=== PATIENT | male | born 1950 | race Caucasian/White ===

== ENCOUNTER 2022-06-24 09:11 | Emergency (ER) | payer BC, OTHER ==
[~2022-06-24] VITALS: Ht 177.8 cm; Wt 113.4 kg
[2022-06-24 09:24] VITALS: BP_SYST 124
[2022-06-24 10:58] LABS: BASOPHILS # (AUTO) 0.1 K/uL (0.0-0.2); BASOPHILS % (AUTO) 0.5 % (0.0-2.0); EOSINOPHILS # (AUTO) 0.1 K/uL (0.0-0.4); EOSINOPHILS % (AUTO) 0.9 % (0.0-4.0); HEMATOCRIT 45.2 % (36-54); HEMOGLOBIN 15.4 g/dL (14.0-18.0); LYMPHOCYTES # (AUTO) 0.4 K/uL (1.0-5.5); MEAN CORPUSCULAR HEMOGLOBIN 28 pg (27-31); MEAN CORPUSCULAR HGB CONC 34 % (32-36); MEAN CORPUSCULAR VOLUME 83 fL (79.0-98.0); MONOCYTES # (AUTO) 0.9 K/uL (0.0-1.0); MONOCYTES % (AUTO) 9.5 % (1.7-9.3); NEUTROPHILS # (AUTO) 8.1 K/uL (1.8-7.7); NEUTROPHILS % (AUTO) 85.1 % (40.0-70.0); PLATELET COUNT (AUTO) 206 K/uL (130-430); RED BLOOD CELL COUNT(AUTO) 5.47 MIL/uL (4.2-6.2); RED CELL DISTRIBUTION WIDTH 14.3 % (9.0-15.0); WHITE BLOOD COUNT (AUTO) 9.6 K/uL (4.8-10.8)
--- NOTE | 2022-06-24 11:03 | NUR ---
Placed in room 03 . Placed on cafeteria monitor, blood pressure machine and pulse oximeter. To gown for exam. Side rails up. Report given to CHRISSIE CASTANEDA.
--- NOTE | 2022-06-24 11:05 | NUR ---
DR. LEVI AT BEDSIDE TO ASSESS PT.
[2022-06-24 11:13] LABS: ANION GAP 4 (5-15); CALCIUM 8.9 mg/dL (8.4-11.0); CHLORIDE 97 mmol/L (98-107); CREATININE 1.51 mg/dL (0.55-1.30); GLUCOSE 262 mg/dL (70-99); UREA NITROGEN, BLOOD 25 mg/dL (8-21)
--- NOTE | 2022-06-24 11:15 | NUR ---
RECEIVED PT FROM CHRISSIE GORE. PT FELL FORWARD WHILE TAKING MORNING WALK, NO K/O. NO INJURY NOTED. PT IS AAOX4. RESP E/U. DENIES N/V. SKIN INTACT. DENIES PAIN.
[2022-06-24 11:23] LABS: ALANINE AMINOTRANSFERASE 43 U/L (12-78); ALBUMIN 3.5 g/dL (3.4-4.8); ASPARTATE AMINOTRANSFERASE 36 U/L (10-37); TOTAL BILIRUBIN 0.4 mg/dL (0.0-1.0)
[2022-06-24 13:18] VITALS: BP_SYST 152
== END 2022-06-24 13:21 | disposition home or self-care (01) ==
LOC: SED 09:11
DX: Z04.2 Encounter for examination and observation following work accident (principal); E11.9 Type 2 diabetes mellitus without complications; R51.9 Headache, unspecified; Z79.899 Other long term (current) drug therapy
CPT/HCPCS: 36415; 70450-TC; 76376; 80053; 84484; 85025; 99284

== ENCOUNTER 2022-09-11 04:50 | Inpatient (IN) | payer OTHER ==
[2022-09-08 12:24] LABS: BASOPHILS % (AUTO) 0.4 % (0.0-2.0); EOSINOPHILS # (AUTO) 0.1 K/uL (0.0-0.4); EOSINOPHILS % (AUTO) 1.1 % (0.0-4.0); HEMATOCRIT 36.6 % (36-54); HEMOGLOBIN 12.2 g/dL (14.0-18.0); LYMPHOCYTES # (AUTO) 1.8 K/uL (1.0-5.5); LYMPHOCYTES % (AUTO) 15.9 % (20.5-51.5); MEAN CORPUSCULAR HEMOGLOBIN 28 pg (27-31); MEAN CORPUSCULAR HGB CONC 33 % (32-36); MEAN CORPUSCULAR VOLUME 84 fL (79.0-98.0); MONOCYTES # (AUTO) 0.7 K/uL (0.0-1.0); MONOCYTES % (AUTO) 6.6 % (1.7-9.3); NEUTROPHILS # (AUTO) 8.4 K/uL (1.8-7.7); PLATELET COUNT (AUTO) 379 K/uL (130-430); RED BLOOD CELL COUNT(AUTO) 4.37 MIL/uL (4.2-6.2); RED CELL DISTRIBUTION WIDTH 15.2 % (9.0-15.0)
[2022-09-08 12:35] LABS: PROTHROMBIN TIME 10.3 SECS (9.5-12.5)
[2022-09-08 12:40] LABS: ALANINE AMINOTRANSFERASE 29 U/L (12-78); ANION GAP 5 (5-15); ASPARTATE AMINOTRANSFERASE 22 U/L (10-37); CALCIUM 9.1 mg/dL (8.4-11.0); CHLORIDE 104 mmol/L (98-107); CREATININE 1.14 mg/dL (0.55-1.30); GLUCOSE 59 mg/dL (70-99); TOTAL BILIRUBIN 0.7 mg/dL (0.0-1.0); UREA NITROGEN, BLOOD 31 mg/dL (8-21)
[~2022-09-11] VITALS: Ht 172.7 cm; Wt 102.1 kg
[2022-09-11] MEDS ORDERED: VANCOMYCIN HCL 1000 MG/VIAL IV ONE (07:48)
[2022-09-11] MEDS ORDERED: DEXAMETHASONE SOD PHOSPHATE 4 MG/ML VIAL ONE (07:48)
[2022-09-11] MEDS ORDERED: LIDOCAINE 2%, 20 ML MDV ONE (07:48)
[2022-09-11] MEDS ORDERED: MIDAZOLAM HCL 2 MG/2 ML VIAL (VERSED) ONE (07:48)
[2022-09-11] MEDS ORDERED: PHENYLEPHRINE HCL 10 MG/ML VIAL (NEOSYNEPHRINE) ONE (07:48)
[2022-09-11] MEDS ORDERED: LR 1,000 ML IV.SOLN IV ONE (07:48)
[2022-09-11] MEDS ORDERED: PROPOFOL 200MG/ 20ML VIAL (DIPRIVAN) IV ONE (07:48)
[2022-09-11] MEDS ORDERED: NS IRRIG SOLN 1000 ML IR ONE (07:48)
[2022-09-11] MEDS ORDERED: KETOROLAC TROMETHAMINE 30 MG VIAL ONE (07:48)
[2022-09-11] MEDS ORDERED: fentaNYL CITRATE/PF 100 MCG/2 ML AMP ONE (07:48)
[2022-09-11] MEDS ORDERED: ceFAZolin SODIUM 2 GM VIAL ONE (07:48)
[2022-09-11] MEDS ORDERED: BUPIVACAINE /EPINEPHRINE/PF 0.5% 30 ML VIAL INJ ONE (07:48)
[2022-09-11] MEDS ORDERED: METOCLOPRAMIDE HCL 10 MG/2 ML VIAL ONE (07:48)
[2022-09-11] MEDS ORDERED: ONDANSETRON HCL 4 MG/2 ML VIAL ONE (07:48)
[2022-09-11] MEDS ORDERED: ePHEDrine sulfate 50 MG/ML VIAL ONE (07:48)
[2022-09-11] MEDS ORDERED: SEVOFLURANE 15 MIN GAS INH ONE (07:48)
[2022-09-11] MEDS ORDERED: SODIUM BICARBONATE 8.4% VIAL 50 MEQ/50 ML VIAL ONE (07:48)
[2022-09-11] MEDS ORDERED: ROCURONIUM BROMIDE 10 MG/ML (ZEMURON) ONE (07:48)
[2022-09-11] MEDS ORDERED: SIMV-345 PO (10:58)
[2022-09-11] MEDS ORDERED: VALS160T2 PO (10:58)
[2022-09-11] MEDS ORDERED: SEMA2PEN SUBCUT (10:58)
[2022-09-11] MEDS ORDERED: SSNOVOLOG SUBCUT (10:58)
[2022-09-11] MEDS ORDERED: [UNRECOGNIZED DRUG - CODE] IM (10:58)
[2022-09-11] MEDS ORDERED: METF-379 PO (10:58)
[2022-09-11] MEDS ORDERED: INSU100I24 SQ (10:58)
[2022-09-11] MEDS ORDERED: HYDROmorphone 1 MG/ML INJ. CARTRIDGE IVP PRN ×3 (11:00)
[2022-09-11] MEDS ORDERED: traMADol HCL HCL 50 MG TABLET (ULTRAM) PO PRN (11:00)
[2022-09-11] MEDS ORDERED: LORATADINE 10 MG TABLET PO PRN (11:00)
[2022-09-11] MEDS ORDERED: oxyCODONE HCL 5 MG TABLET PO PRN ×2 (11:00)
[2022-09-11] MEDS ORDERED: ONDANSETRON HCL 4 MG/2 ML VIAL IVP PRN (11:45)
[2022-09-11] MEDS ORDERED: DEXTROSE 50% JECT 50 ML DISP.SYRIN IVP PRN (13:30)
[2022-09-11] MEDS ORDERED: METOCLOPRAMIDE HCL 10 MG/2 ML VIAL IVP PRN (13:30)
[2022-09-11] MEDS ORDERED: GLUCOSE (DEXTROSE) ORAL GEL -Adults PO PRN (13:30)
[2022-09-11] MEDS ORDERED: BISACODYL 10 MG/SUPPOSITORY RC PRN (13:30)
[2022-09-11] MEDS ORDERED: DIPHENHYDRAMINE HCL 25 MG CAPSULE PO PRN (13:30)
[2022-09-11] MEDS ORDERED: D5W 1,000 ML IV PRN (13:30)
[2022-09-11] MEDS ORDERED: NALOXONE HCL 0.4 MG/ML AMP (NARCAN) IVP PRN ×3 (13:30)
[2022-09-11] MEDS ORDERED: LACTULOSE 20 GM/30 ML UDC PO PRN (13:30)
[2022-09-11] MEDS ORDERED: INSULIN LISPRO SLIDING SCALE 100 UNITS/ML, 3 ML VIAL (humaLOG) SUBCUT PRN (13:30)
[2022-09-11] MEDS: ACETAMINOPHEN 500 MG TABLET PO SCH ×2 (14:00→21:25)
[2022-09-11] MEDS: HYDROmorphone 1 MG/ML INJ. CARTRIDGE IVP PRN ×2 (14:17→14:27)
[2022-09-11] MEDS ORDERED: HYDROmorphone 1 MG/ML INJ. CARTRIDGE ONE (14:20)
[2022-09-11] MEDS: KETOROLAC TROMETHAMINE 10 MG TABLET (TORADOL) PO SCH (18:00)
[2022-09-11] MEDS: ceFAZolin SODIUM 2 GM in D5W 50 ML IV SCH (18:16)
[2022-09-11 20:28] VITALS: BP_SYST 141
[2022-09-11] MEDS: SENNOSIDES/DOCUSATE SODIUM 1 TAB TABLET(SENOKOT-S) PO SCH (21:22)
[2022-09-12 00:30] VITALS: BP_SYST 140
[2022-09-12] MEDS: ceFAZolin SODIUM 2 GM in D5W 50 ML IV SCH ×2 (02:15→09:15)
[2022-09-12] MEDS: KETOROLAC TROMETHAMINE 10 MG TABLET (TORADOL) PO SCH ×2 (02:16→09:22)
[2022-09-12] MEDS ORDERED: INSU100I24 SQ (04:04)
[2022-09-12] MEDS: ACETAMINOPHEN 500 MG TABLET PO SCH ×3 (06:00→21:58)
[2022-09-12] MEDS ORDERED: ASA81 PO (07:46)
[2022-09-12] MEDS ORDERED: ACET-2634 PO (07:46)
[2022-09-12] MEDS ORDERED: OXYIR5 PO (07:46)
[2022-09-12 08:00] VITALS: BP_SYST 124
[2022-09-12 09:12] LABS: BASOPHILS % (AUTO) 0.4 % (0.0-2.0); EOSINOPHILS # (AUTO) 0.1 K/uL (0.0-0.4); EOSINOPHILS % (AUTO) 0.6 % (0.0-4.0); HEMOGLOBIN 11.1 g/dL (14.0-18.0); LYMPHOCYTES # (AUTO) 1.5 K/uL (1.0-5.5); LYMPHOCYTES % (AUTO) 14.5 % (20.5-51.5); MEAN CORPUSCULAR HEMOGLOBIN 28 pg (27-31); MEAN CORPUSCULAR HGB CONC 34 % (32-36); MEAN CORPUSCULAR VOLUME 84 fL (79.0-98.0); MONOCYTES % (AUTO) 9.9 % (1.7-9.3); NEUTROPHILS # (AUTO) 7.6 K/uL (1.8-7.7); NEUTROPHILS % (AUTO) 74.6 % (40.0-70.0); PLATELET COUNT (AUTO) 333 K/uL (130-430); RED BLOOD CELL COUNT(AUTO) 3.95 MIL/uL (4.2-6.2); RED CELL DISTRIBUTION WIDTH 15.1 % (9.0-15.0); WHITE BLOOD COUNT (AUTO) 10.2 K/uL (4.8-10.8)
[2022-09-12] MEDS: SENNOSIDES/DOCUSATE SODIUM 1 TAB TABLET(SENOKOT-S) PO SCH ×2 (09:14→22:01)
[2022-09-12] MEDS: ASPIRIN 81 MG TAB.CHEW PO SCH ×2 (09:14→21:57)
[2022-09-12 09:22] LABS: ALANINE AMINOTRANSFERASE 21 U/L (12-78); ALBUMIN 2.5 g/dL (3.4-4.8); ANION GAP 5 (5-15); ASPARTATE AMINOTRANSFERASE 26 U/L (10-37); CALCIUM 7.9 mg/dL (8.4-11.0); CHLORIDE 103 mmol/L (98-107); CREATININE 1.48 mg/dL (0.55-1.30); GLUCOSE 174 mg/dL (70-99); TOTAL BILIRUBIN 0.5 mg/dL (0.0-1.0); UREA NITROGEN, BLOOD 33 mg/dL (8-21)
[2022-09-12] MEDS ORDERED: TAMSULOSIN HCL 0.4 MG CAP PO ONE (10:30)
[2022-09-12] MEDS ORDERED: CELECOXIB 200 MG CAPSULE PO SCH (11:00)
[2022-09-12 11:38] VITALS: BP_SYST 148
[2022-09-12] MEDS ORDERED: VALSARTAN Non-Formulary 160 MG TABLET PO SCH (11:45)
[2022-09-12] MEDS ORDERED: SIMVASTATIN 40 MG TABLET PO ONE (12:15)
[2022-09-12] MEDS ORDERED: metFORMIN HCL 500 MG TABLET PO ONE (13:15)
[2022-09-12 15:31] VITALS: BP_SYST 151
[2022-09-12] MEDS ORDERED: metFORMIN HCL 500 MG TABLET PO SCH (18:00)
[2022-09-12 20:05] VITALS: BP_SYST 136
[2022-09-12] MEDS ORDERED: SIMVASTATIN 40 MG TABLET PO SCH (21:00)
[2022-09-12] MEDS ORDERED: LOSARTAN POTASSIUM 50 MG TABLET (COZAAR) PO SCH (21:00)
[2022-09-13] MEDS ORDERED: TAMSULOSIN HCL 0.4 MG CAP PO SCH (09:00)
== END 2022-09-12 22:55 | DRG 493 ==
LOC: SMU 04:50
PROVIDERS: ADMIT Student in an Organized Health Care Education/Training Program; ATTEND Student in an Organized Health Care Education/Training Program
PROC: 0QSK04Z Reposition Left Fibula with Internal Fixation Device, Open Approach (ICD-10-PCS; 2022-09-11)
PROC: 0SSGXZZ Reposition Left Ankle Joint, External Approach (ICD-10-PCS; 2022-09-11)
PROC: 0QSH04Z Reposition Left Tibia with Internal Fixation Device, Open Approach (ICD-10-PCS; principal; 2022-09-11 07:48)
DX: S82.872A Displaced pilon fracture of left tibia, initial encounter for closed fracture (principal); E44.1 Mild protein-calorie malnutrition; S89.292A Other physeal fracture of upper end of left fibula, initial encounter for closed fracture; Z20.822 Contact with and (suspected) exposure to COVID-19; F17.210 Nicotine dependence, cigarettes, uncomplicated; Z79.899 Other long term (current) drug therapy; Z79.82 Long term (current) use of aspirin; Z79.4 Long term (current) use of insulin; V49.88XA Car occupant (driver) (passenger) injured in other specified transport accidents, initial encounter; Y93.89 Activity, other specified; E86.0 Dehydration; Y92.89 Other specified places as the place of occurrence of the external cause; Y99.8 Other external cause status
CPT/HCPCS: 36415; 71045; 76000; 80053; 82948; 82962; 83037; 85025; 85610-TC; 87081; 96379; 97163-GP; 97530-GP; C1713; C1769; J0690; J1100; J1170; J1885; J2001; J2370; J2405; J2704; J2765; J3010; J3370; J3465; J3490; J7060; J7120